=== PATIENT | male | born 1935 | race Caucasian/White ===

== ENCOUNTER 2019-09-03 06:39 | Day surgery (SDC) | payer MEDICARE ==
[~2019-09-03] VITALS: Ht 175.3 cm; Wt 102.0 kg
[~2019-09-03 06:39] MED LIST: ASPI81CH PO; CLOP75 PO; LEVOTHYROXINE PO; LEVSOD25 PO; LOVA40 PO; METF500 PO; METO25ER PO; METRIBP PO; Prinivil10 MG PO; Silvadene20 GM TOP; Vitamin B-121000 MCG PO; WARF5 PO; XARELTO15 MG PO; Zofran Odt4 MG PO
[2019-09-03] MEDS ORDERED: PLAVIX75 MG PO (10:03)
--- NOTE | 2019-09-03 11:14 | NUR ---
RIGHT GROIN SITE SOFT WITH NO HEMATOMA, NO PULSATILE BLEEDING AND INTACT DRESSING. CALL LIGHT IN REACH.
--- NOTE | 2019-09-03 11:37 | NUR ---
DISCHARGE INSTRUCTIONS REVIEWED ALL QUESTIONS ANSWERED. RIGHT GROIN SITE SOFT WITH NO HEMATOMA AND NO PULSATILE BLEEDING AND INTACT DRESSING.
== END 2019-09-03 12:15 | disposition home or self-care (01) ==
LOC: MHTC 06:39
DX: E11.51 Type 2 diabetes mellitus with diabetic peripheral angiopathy without gangrene (principal); I70.239 Atherosclerosis of native arteries of right leg with ulceration of unspecified site; I70.249 Atherosclerosis of native arteries of left leg with ulceration of unspecified site; E78.00 Pure hypercholesterolemia, unspecified; I25.10 Atherosclerotic heart disease of native coronary artery without angina pectoris; I82.409 Acute embolism and thrombosis of unspecified deep veins of unspecified lower extremity; Z88.1 Allergy status to other antibiotic agents; Z79.899 Other long term (current) drug therapy; Z79.82 Long term (current) use of aspirin; Z79.84 Long term (current) use of oral hypoglycemic drugs; Z79.01 Long term (current) use of anticoagulants
CPT/HCPCS: 82947; 85347; 99152; 99153; A9270-GY; C1725; C1760; C1769; C1887; C1894; J1644; J2250; J3010; J7030; Q9967

== ENCOUNTER → 2021-06-19 | Outpatient (CLI) | payer MEDICARE ==
[~2021-06-19] MED LIST changes: +PLAVIX75 MG PO
== END | disposition home or self-care (01) ==
LOC: LAB SHORT 07:37
DX: I87.2 Venous insufficiency (chronic) (peripheral) (principal); R23.4 Changes in skin texture
CPT/HCPCS: 88305; 88312

== ENCOUNTER 2021-07-24 09:15 | Observation (INO) | payer MEDICARE ==
[~2021-07-24] VITALS: Ht 175.3 cm; Wt 90.1 kg
[~2021-07-24 09:15] MED LIST changes: +EUTHYROX50 MCG PO; -LEVSOD25 PO
[2021-07-24 10:00] LABS: BASOPHILS ABSOLUTE AUTO 0.04 K/mm3 (0.00-0.23); BASOPHILS PERCENT AUTO 1 % (0-2); EOSINOPHILS ABSOLUTE AUTO 0.01 K/mm3 (0.00-0.68); EOSINOPHILS PERCENT AUTO 0 % (0-6); Hematocrit 40.9 % (37.0-53.0); Hemoglobin 13.9 g/dL (13.5-17.5); IMMATURE GRAN ABSOLUTE AUTO 0.03 K/mm3 (0.00-0.10); IMMATURE GRAN PERCENT AUTO 0 % (0-1); LYMPHOCYTES ABSOLUTE AUTO 0.76 K/mm3 (0.84-5.20); LYMPHOCYTES PERCENT AUTO 11 % (21-46); MONOCYTES ABSOLUTE AUTO 0.62 K/mm3 (0.16-1.47); MONOCYTES PERCENT AUTO 9 % (4-13); Mean Corpuscular HGB 33.5 pg (26.0-34.0); Mean Corpuscular Volume 99 fL (80-100); Mean Platelet Volume 9.5 fL (9.1-12.4); NEUTROPHILS ABSOLUTE AUTO 5.45 K/mm3 (1.96-9.15); NEUTROPHILS PERCENT AUTO 79 % (41-73); Platelet Count 193 K/mm3 (150-400); RDW Coefficient Variation 13.2 % (11.7-14.2); RDW Standard Deviation 47.9 fL (35.1-46.3); Red Blood Cell Count 4.15 M/mm3 (4.30-5.90); White Blood Cell Count 6.91 K/mm3 (4.00-11.30)
[2021-07-24 10:34] LABS: Alanine Aminotransfer (ALT/SGP 31 U/L (12-78); Albumin, Blood 3.7 g/dL (3.4-5.0); Albumin/Globulin Ratio 0.9 (0.8-1.8); Alk Phos 82 U/L (50-136); Anion Gap 10 mmol/L (6-16); Aspartate Aminotrans (AST/SGOT 21 U/L (12-37); Bilirubin, Total 1.1 mg/dL (0.1-1.0); Blood Urea Nitrogen 18 mg/dL (8-24); Bun/Creatinine Ratio 19.6 (12.0-20.0); CO2, Blood 22 mmol/L (21-32); Calcium, Blood 9.2 mg/dL (8.5-10.1); Chloride, Blood 107 mmol/L (98-108); Creatinine, Blood 0.92 mg/dL (0.60-1.20); Glomerular Filtration Rate >60 (60-); Glucose, Blood 217 mg/dL (70-99); Magnesium, Blood 1.5 mg/dL (1.6-2.4); Potassium, Blood 4.5 mmol/L (3.5-5.5); Sodium, Blood 139 mmol/L (136-145); Total Protein, Blood 7.7 g/dL (6.4-8.2)
[2021-07-24 10:50] LABS: Influenza A, PCR NEGATIVE (NEGATIVE); Influenza B, PCR NEGATIVE (NEGATIVE); Resp Syncytial Virus, PCR NEGATIVE (NEGATIVE); SARS-Cov-2 (COVID-19) PCR, MMC NEGATIVE (NEGATIVE)
[2021-07-24 10:56] LABS: International Normalized Ratio 1.21; Prothrombin Time Results 12.5 Sec (9.7-11.5)
--- NOTE | 2021-07-24 19:17 | NUR ---
PT ARRIVED TO THE UNIT VIA GURNEY. HIS WAS AT BEDSIDE. ORIENTED TO THE ROOM. HIS BED IS IN THE LOW POSITION AND CALL LIGHT IS WITIN REACH. PROVIDED A SNACK, PT SLEPT THE REMAINDER OF THIS SHIFT. REPORT GIVEN TO SHERLY MANUEL
--- NOTE | 2021-07-25 05:23 | NUR ---
PT IS SLEEPING THIS AM. PT IS PLEASANT AND CAN BE FORGETFUL SOMETIMES DUE TO HX OF DEMENTIA. PT FORGETS HIS LIMITATION AND STREGNTHS, PT IS VERY WEAK AND REQUIRES ASSISTANCE TO THE BEDSIDE COMMODE. PT IS ON 2L NC AND DOES C/O SOB, SATS ARE >90. OTHERWISE NO ACUTE EVENTS OVERNIGHT, PT HAS BEEN EDUCATED ON SAFETY AND CALL LIGHT USAGE. CALL LIGHT AND PERSONAL BELONGING WITHIN REACH..
[2021-07-25 05:40] LABS: BASOPHILS ABSOLUTE AUTO 0.03 K/mm3 (0.00-0.23); BASOPHILS PERCENT AUTO 0 % (0-2); EOSINOPHILS ABSOLUTE AUTO 0.03 K/mm3 (0.00-0.68); EOSINOPHILS PERCENT AUTO 0 % (0-6); Hemoglobin 11.7 g/dL (13.5-17.5); IMMATURE GRAN ABSOLUTE AUTO 0.03 K/mm3 (0.00-0.10); IMMATURE GRAN PERCENT AUTO 0 % (0-1); LYMPHOCYTES ABSOLUTE AUTO 1.38 K/mm3 (0.84-5.20); LYMPHOCYTES PERCENT AUTO 17 % (21-46); MONOCYTES ABSOLUTE AUTO 0.81 K/mm3 (0.16-1.47); MONOCYTES PERCENT AUTO 10 % (4-13); Mean Corpuscular HGB 33.7 pg (26.0-34.0); Mean Corpuscular HGB Conc 33.4 g/dL (31.5-36.5); Mean Corpuscular Volume 101 fL (80-100); Mean Platelet Volume 9.9 fL (9.1-12.4); NEUTROPHILS ABSOLUTE AUTO 5.86 K/mm3 (1.96-9.15); NEUTROPHILS PERCENT AUTO 72 % (41-73); Platelet Count 136 K/mm3 (150-400); RDW Coefficient Variation 13.3 % (11.7-14.2); RDW Standard Deviation 49.4 fL (35.1-46.3); Red Blood Cell Count 3.47 M/mm3 (4.30-5.90); White Blood Cell Count 8.14 K/mm3 (4.00-11.30)
[2021-07-25 06:10] LABS: Anion Gap 7 mmol/L (6-16); Blood Urea Nitrogen 20 mg/dL (8-24); Bun/Creatinine Ratio 20.7 (12.0-20.0); CO2, Blood 25 mmol/L (21-32); Calcium, Blood 9.2 mg/dL (8.5-10.1); Chloride, Blood 108 mmol/L (98-108); Creatinine, Blood 0.97 mg/dL (0.60-1.20); Glomerular Filtration Rate >60 (60-); Glucose, Blood 148 mg/dL (70-99); Magnesium, Blood 1.9 mg/dL (1.6-2.4); Phosphorus, Blood 3.3 mg/dL (2.5-4.9); Potassium, Blood 4.1 mmol/L (3.5-5.5); Sodium, Blood 140 mmol/L (136-145)
--- NOTE | 2021-07-25 11:51 | NUR ---
PT. COUGHED UP SMALL AMOUNT OF BLOODY MUCOUS. (AT BEDSIDE) REPORTS THAT THIS HAS HAPPENED THREE TIMES. RN NOTIFIED IMMEDIATELY.
--- NOTE | 2021-07-25 13:24 | NUR ---
CHARTING A ENGINEER STATION MAINLINE 2 STUDENT.
[2021-07-26 05:35] LABS: BASOPHILS ABSOLUTE AUTO 0.03 K/mm3 (0.00-0.23); BASOPHILS PERCENT AUTO 0 % (0-2); EOSINOPHILS ABSOLUTE AUTO 0.09 K/mm3 (0.00-0.68); EOSINOPHILS PERCENT AUTO 1 % (0-6); Hemoglobin 12.1 g/dL (13.5-17.5); IMMATURE GRAN ABSOLUTE AUTO 0.07 K/mm3 (0.00-0.10); IMMATURE GRAN PERCENT AUTO 1 % (0-1); LYMPHOCYTES ABSOLUTE AUTO 0.89 K/mm3 (0.84-5.20); LYMPHOCYTES PERCENT AUTO 11 % (21-46); MONOCYTES ABSOLUTE AUTO 0.84 K/mm3 (0.16-1.47); MONOCYTES PERCENT AUTO 11 % (4-13); Mean Corpuscular HGB 33.6 pg (26.0-34.0); Mean Corpuscular HGB Conc 33.6 g/dL (31.5-36.5); Mean Corpuscular Volume 100 fL (80-100); Mean Platelet Volume 9.8 fL (9.1-12.4); NEUTROPHILS ABSOLUTE AUTO 6.04 K/mm3 (1.96-9.15); NEUTROPHILS PERCENT AUTO 76 % (41-73); Platelet Count 148 K/mm3 (150-400); RDW Coefficient Variation 12.9 % (11.7-14.2); RDW Standard Deviation 47.9 fL (35.1-46.3); White Blood Cell Count 7.96 K/mm3 (4.00-11.30)
[2021-07-26 06:06] LABS: Anion Gap 7 mmol/L (6-16); Blood Urea Nitrogen 17 mg/dL (8-24); Bun/Creatinine Ratio 18.4 (12.0-20.0); CO2, Blood 26 mmol/L (21-32); Calcium, Blood 9.5 mg/dL (8.5-10.1); Chloride, Blood 103 mmol/L (98-108); Creatinine, Blood 0.92 mg/dL (0.60-1.20); Glomerular Filtration Rate >60 (60-); Glucose, Blood 189 mg/dL (70-99); Magnesium, Blood 1.9 mg/dL (1.6-2.4); Phosphorus, Blood 3.2 mg/dL (2.5-4.9); Potassium, Blood 4.3 mmol/L (3.5-5.5); Sodium, Blood 136 mmol/L (136-145)
--- NOTE | 2021-07-26 06:44 | NUR ---
SHIFT REPORT ALERT AND ORIENTED X'S 3. SLEPT WELL THROUGH NIGHT. RESPIRATIONS EVEN AND UNLABORED, ON RA, LUNG SOUNDS CLEAR. SAFETY MAINTAINED, CALL CEJA IN REACH
--- NOTE | 2021-07-26 08:34 | NUR ---
Patient is already a resumption for [facility] services, and will receive [facility] services. I called Summer with Sandi to request she disregard the referral from [facility]LO[facility] Marlow yesterday and confirmed with Ashley Richardson again that he will still receive services after hospital discharge - she confirmed this.
[2021-07-26] MEDS ORDERED: AZIT250 PO (10:59)
[2021-07-26] MEDS ORDERED: LEVO750 PO (10:59)
--- NOTE | 2021-07-26 11:54 | NUR ---
DISCHARGE INSTRUCTION GIVEN TO PATIENT AND PATENT'S , Patient and verbalized understanding. iv removed per PROTOCOL. PATIENT WAS ADVISED TO FOLLOW-UP WITH PCP AND COMPLETE ANTIBIOTIC ORDER. PATIENT WAITING ON TRANSPORATATION. NO ACUTE DISTRESS NOTED.
--- NOTE | 2021-07-26 13:12 | NUR ---
Per chart review with Dr. Parr, patient appropriate to discharge home with [facility] services. I called and spoke with patient's this morning to discuss discharge plan. Patient and no longer drive. Patient's arrange discharge transportation with family friend. I scheduled a hospital follow-up with patient's PCP, Dr. Mcclellan on Sunday, August 01, 2021 @ 11:40am. Patient and agreeable to discharge plan and scheduled appointment with PCP, deny barriers to discharge.
--- NOTE | 2021-07-26 13:37 | NUR ---
PATIENT WAS TRANSFER TO THE MAIN ENTRANCE FOR DISCHARGE, NO ACUTE DITRESS NOTED.
== END 2021-07-26 13:45 | disposition home health service (06) ==
LOC: ER 09:15 → MEDS 09:16 → ER 13:15 → MEDS 13:15
PROVIDERS: Student in an Organized Health Care Education/Training Program; ADMIT Family Medicine
DX: J18.9 Pneumonia, unspecified organism (principal); J96.01 Acute respiratory failure with hypoxia; I10 Essential (primary) hypertension; R35.0 Frequency of micturition; I25.10 Atherosclerotic heart disease of native coronary artery without angina pectoris; E11.9 Type 2 diabetes mellitus without complications; R91.1 Solitary pulmonary nodule; F03.90 Unspecified dementia, unspecified severity, without behavioral disturbance, psychotic disturbance, mood disturbance, and anxiety; I44.7 Left bundle-branch block, unspecified; R00.0 Tachycardia, unspecified; E83.42 Hypomagnesemia; I35.0 Nonrheumatic aortic (valve) stenosis; Z88.1 Allergy status to other antibiotic agents; Z20.822 Contact with and (suspected) exposure to COVID-19
CPT/HCPCS: 0241U; 36415; 71045; 71250; 80053; 80069; 82947; 83605; 83735; 83880; 84484; 85025; 85610; 85730; 87040; 93005; 93010; 96365; 96368; 96376; 97110; 97116; 97162; 99285-25; A9270; G0378; J0456; J0696; J3475; J7030; J7050

== ENCOUNTER 2021-09-04 09:20 | Day surgery (SDC) | payer MEDICARE ==
[~2021-09-04] VITALS: Ht 175.3 cm; Wt 92.0 kg
[~2021-09-04 09:20] MED LIST changes: +AZIT250 PO; +LEVO750 PO
--- NOTE | 2021-09-04 13:24 | NUR ---
PT UP TO BATHROOM /C SBA. TOLERATED WELL. -BLEEDING OR SWELLING R GROIN AREA.
--- NOTE | 2021-09-04 14:01 | NUR ---
PT AND VERBALIZED UNDERSTANDING OF WRITTEN AND VERBAL D/C INST. IV REMOVED. -BLEEDING OR SWELLIN R GROIN AREA.
== END 2021-09-04 14:29 | disposition home or self-care (01) ==
LOC: MHTC 09:20
DX: I35.0 Nonrheumatic aortic (valve) stenosis (principal); I25.10 Atherosclerotic heart disease of native coronary artery without angina pectoris; I10 Essential (primary) hypertension; E11.9 Type 2 diabetes mellitus without complications; G47.33 Obstructive sleep apnea (adult) (pediatric); E78.00 Pure hypercholesterolemia, unspecified; I44.7 Left bundle-branch block, unspecified; Z86.718 Personal history of other venous thrombosis and embolism; Z86.711 Personal history of pulmonary embolism; Z79.82 Long term (current) use of aspirin; Z79.84 Long term (current) use of oral hypoglycemic drugs; Z79.02 Long term (current) use of antithrombotics/antiplatelets; Z79.01 Long term (current) use of anticoagulants; Z95.5 Presence of coronary angioplasty implant and graft; Z88.0 Allergy status to penicillin; Z88.1 Allergy status to other antibiotic agents
CPT/HCPCS: 93458; 99152; 99153; C1760; C1769; C1894; J1644; J2250; J3010; J7030; J7050; Q9967

== ENCOUNTER 2021-09-11 14:55 | Emergency (ER) | payer MEDICARE ==
[~2021-09-11] VITALS: Ht 175.3 cm; Wt 91.6 kg
== END 2021-09-11 17:06 | disposition home or self-care (01) ==
LOC: ER 14:55
DX: L76.31 Postprocedural hematoma of skin and subcutaneous tissue following a dermatologic procedure (principal); I10 Essential (primary) hypertension; E78.00 Pure hypercholesterolemia, unspecified; Z79.899 Other long term (current) drug therapy
CPT/HCPCS: 93926; 99283-25

== ENCOUNTER 2021-11-18 21:11 | Observation (INO) | payer MEDICARE ==
[~2021-11-18] VITALS: Ht 175.3 cm; Wt 91.5 kg
[2021-11-18 21:54] LABS: BASOPHILS ABSOLUTE AUTO 0.03 K/mm3 (0.00-0.23); BASOPHILS PERCENT AUTO 1 % (0-2); EOSINOPHILS ABSOLUTE AUTO 0.02 K/mm3 (0.00-0.68); EOSINOPHILS PERCENT AUTO 0 % (0-6); IMMATURE GRAN ABSOLUTE AUTO 0.04 K/mm3 (0.00-0.10); IMMATURE GRAN PERCENT AUTO 1 % (0-1); LYMPHOCYTES ABSOLUTE AUTO 0.45 K/mm3 (0.84-5.20); LYMPHOCYTES PERCENT AUTO 7 % (21-46); MONOCYTES PERCENT AUTO 8 % (4-13); Mean Corpuscular HGB 33.2 pg (26.0-34.0); Mean Corpuscular HGB Conc 34.1 g/dL (31.5-36.5); Mean Corpuscular Volume 97 fL (80-100); Mean Platelet Volume 9.5 fL (9.1-12.4); NEUTROPHILS ABSOLUTE AUTO 5.61 K/mm3 (1.96-9.15); NEUTROPHILS PERCENT AUTO 84 % (41-73); Platelet Count 154 K/mm3 (150-400); RDW Standard Deviation 46.5 fL (35.1-46.3); Red Blood Cell Count 4.22 M/mm3 (4.30-5.90); White Blood Cell Count 6.65 K/mm3 (4.00-11.30)
[2021-11-18 22:15] LABS: Albumin, Blood 3.9 g/dL (3.4-5.0); Bilirubin, Total 0.8 mg/dL (0.1-1.0); Bun/Creatinine Ratio 15.5 (12.0-20.0); Calcium, Blood 9.7 mg/dL (8.5-10.1); Creatinine, Blood 1.03 mg/dL (0.60-1.20); Globulin, Blood 3.8 g/dL (2.2-4.0); Potassium, Blood 4.2 mmol/L (3.5-5.5); Total Protein, Blood 7.7 g/dL (6.4-8.2)
[2021-11-19 01:02] LABS: Source, Urine Clean Catch
[2021-11-19 01:05] LABS: Bilirubin, Urine Neg (Neg); Blood, Urine 3+ (Neg); Glucose Qualitative, Urine 3+ (Neg); Ketones, Urine Neg (Neg); Leukocyte Esterase, Urine Neg (Neg); Nitrite, Urine Neg (Neg); Protein, Urine 3+ (Neg); Specific Gravity, Urine 1.015 (1.003-1.022); Urobilinogen, Urine 2+ (Normal)
[2021-11-19] MEDS ORDERED: ATOR40TA PO (01:08)
[2021-11-19] MEDS ORDERED: ALOGLIPTIN25 M1 PO (01:10)
[2021-11-19 01:20] LABS: Appearance, Urine Clear (Clear); Color, Urine Yellow (P-Yellow)
[2021-11-19 01:21] LABS: Bacteria Not Seen /hpf; Red Blood Cells, Urine 0-2 /hpf (0-2); Squamous Epithelial Cells Rare /hpf (Few); White Blood Cells, Urine 0-2 /hpf (0-5)
[2021-11-19 05:06] LABS: Influenza A, PCR NEGATIVE (NEGATIVE); Influenza B, PCR NEGATIVE (NEGATIVE); Resp Syncytial Virus, PCR NEGATIVE (NEGATIVE)
[2021-11-19 05:51] LABS: SARS-Cov-2 (COVID-19) PCR, MMC POSITIVE (NEGATIVE)
[2021-11-19 12:08] LABS: Creatine Kinase MB 6.3 ng/mL (0.0-3.6); Creatine Kinase MB Index 0.9 (0.0-4.0)
--- NOTE | 2021-11-19 18:36 | NUR ---
SHIFT SUMMARY PATIENT ADMITTED FROM ER FOR COVID + WITH INCREASED WEAKNESS. PATIENT A&OX4, [place] BUT HAS HEARING AIDS IN. PATIENT HAS ELEVATED TROPS, ELEVATED CREATINE KINASE. PATIENT DENIES CHEST PAIN OR SOB. ON TELE SINUS TACH. REPEAT EKG DONE. PATIENT ON RA. DRY COUGH PRESENT. RECEIVING IV FLUIDS. PATIENT HAS NOT AMBULATED SINCE TRANSPORTED UP FROM ER. PATIENT REPORTS HE AMBULATES WITH WALKER AT HOME. WILL CONTINUE TO MONITOR.
[2021-11-19 20:22] LABS: Creatine Kinase MB 18.2 ng/mL (0.0-3.6); Creatine Kinase MB Index 0.7 (0.0-4.0)
[2021-11-20 05:34] LABS: BASOPHILS ABSOLUTE AUTO 0.03 K/mm3 (0.00-0.23); BASOPHILS PERCENT AUTO 1 % (0-2); EOSINOPHILS ABSOLUTE AUTO 0.25 K/mm3 (0.00-0.68); EOSINOPHILS PERCENT AUTO 4 % (0-6); Hematocrit 41.3 % (37.0-53.0); Hemoglobin 13.8 g/dL (13.5-17.5); IMMATURE GRAN ABSOLUTE AUTO 0.02 K/mm3 (0.00-0.10); IMMATURE GRAN PERCENT AUTO 0 % (0-1); LYMPHOCYTES ABSOLUTE AUTO 1.21 K/mm3 (0.84-5.20); LYMPHOCYTES PERCENT AUTO 21 % (21-46); MONOCYTES ABSOLUTE AUTO 0.67 K/mm3 (0.16-1.47); MONOCYTES PERCENT AUTO 12 % (4-13); Mean Corpuscular HGB 33.5 pg (26.0-34.0); Mean Corpuscular HGB Conc 33.4 g/dL (31.5-36.5); Mean Corpuscular Volume 100 fL (80-100); Mean Platelet Volume 9.4 fL (9.1-12.4); NEUTROPHILS ABSOLUTE AUTO 3.67 K/mm3 (1.96-9.15); NEUTROPHILS PERCENT AUTO 63 % (41-73); Platelet Count 141 K/mm3 (150-400); RDW Coefficient Variation 13.1 % (11.7-14.2); RDW Standard Deviation 48.8 fL (35.1-46.3); Red Blood Cell Count 4.12 M/mm3 (4.30-5.90); White Blood Cell Count 5.85 K/mm3 (4.00-11.30)
--- NOTE | 2021-11-20 05:37 | NUR ---
PT SLEPT ALL NIGHT, NO PRNS GIVEN. VSS, LUNG SOUNDS DIM. MD CALLED REGARDING INCREASE IN CK, FLUIDS DC PER ORDER AND .
[2021-11-20 05:53] LABS: Albumin, Blood 3.3 g/dL (3.4-5.0); Albumin/Globulin Ratio 0.9 (0.8-1.8); Bilirubin, Total 0.7 mg/dL (0.1-1.0); Bun/Creatinine Ratio 17.9 (12.0-20.0); Calcium, Blood 9.5 mg/dL (8.5-10.1); Creatinine, Blood 0.95 mg/dL (0.60-1.20); Globulin, Blood 3.6 g/dL (2.2-4.0); Potassium, Blood 4.2 mmol/L (3.5-5.5); Total Protein, Blood 6.9 g/dL (6.4-8.2)
--- NOTE | 2021-11-20 13:38 | NUR ---
Upon receiving a spiritual care referral, I visit pt. Pt is lying in bed and resting but easily awakens to the sound of his name. Pt explains about how weak and tired he is but admits to feeling a little stronger this day. Pt talks about his love for his family of , Dali and 2 sons and 1 dtr. and his love for God and the [place]. He shares about his fears centered around his health and the care of his how has had a stroke and needs care. His neighbors are keeping a watchful eye on her while he is in the hospital and stepping in where needed. I normalize his concerns and provide anxiety containment, pastoral credit counselor, recitation of scripture and prayer. Pt responds well and shows signs of being encouraged in his cammie. I I will continue to remainavailable to pt and family.
--- NOTE | 2021-11-20 15:10 | NUR ---
ECHOCARDIOGRAM COMPLETED TODAY. EF 59%. LOW TO NORMAL SYSTOLIC FUNCTION. THE ECHO SHOWS A INTRAVENTRICULAR CONDUCTION ABNORMALITY PER REPORT. PATIENT TALKED WITH GREEN BUILDING ENGINEER TODAY ABOUT PLACEMENT INTO REHAB FOR A TIME POST DISCHARGE. NO COMPLAINTS OF SOB OR PAIN.
--- NOTE | 2021-11-20 17:57 | NUR ---
PATIENT DENIES SOB, CHEST PAIN, OR OTHER COMPLAINTS BESIDES HIS COUGH. END OF SHIFT HE REQUESTED SOMETHING FOR COUGH, TESSLON ORDER APPROVED. ECHO WAS COMPLETED TODAY. RESULTS ARE IN CHART. PATIENT COMFORTABLE EATING DINNER AT THIS TIME.
--- NOTE | 2021-11-21 04:46 | NUR ---
NO ACUTE CHANGES IN THE NIGHT. VSS, PT SLEPT ALL NIGHT.
[2021-11-21 05:49] LABS: BASOPHILS ABSOLUTE AUTO 0.03 K/mm3 (0.00-0.23); BASOPHILS PERCENT AUTO 1 % (0-2); EOSINOPHILS ABSOLUTE AUTO 0.36 K/mm3 (0.00-0.68); EOSINOPHILS PERCENT AUTO 6 % (0-6); Hematocrit 40.1 % (37.0-53.0); Hemoglobin 13.5 g/dL (13.5-17.5); IMMATURE GRAN ABSOLUTE AUTO 0.01 K/mm3 (0.00-0.10); IMMATURE GRAN PERCENT AUTO 0 % (0-1); LYMPHOCYTES ABSOLUTE AUTO 1.74 K/mm3 (0.84-5.20); LYMPHOCYTES PERCENT AUTO 29 % (21-46); MONOCYTES ABSOLUTE AUTO 0.68 K/mm3 (0.16-1.47); MONOCYTES PERCENT AUTO 11 % (4-13); Mean Corpuscular HGB 33.3 pg (26.0-34.0); Mean Corpuscular HGB Conc 33.7 g/dL (31.5-36.5); Mean Corpuscular Volume 99 fL (80-100); Mean Platelet Volume 9.4 fL (9.1-12.4); NEUTROPHILS ABSOLUTE AUTO 3.13 K/mm3 (1.96-9.15); NEUTROPHILS PERCENT AUTO 53 % (41-73); Platelet Count 161 K/mm3 (150-400); RDW Coefficient Variation 12.9 % (11.7-14.2); RDW Standard Deviation 46.5 fL (35.1-46.3); Red Blood Cell Count 4.06 M/mm3 (4.30-5.90); White Blood Cell Count 5.95 K/mm3 (4.00-11.30)
[2021-11-21 06:10] LABS: Albumin/Globulin Ratio 0.8 (0.8-1.8); Bilirubin, Total 0.5 mg/dL (0.1-1.0); Bun/Creatinine Ratio 18.8 (12.0-20.0); Calcium, Blood 9.5 mg/dL (8.5-10.1); Creatinine, Blood 0.96 mg/dL (0.60-1.20); Magnesium, Blood 1.9 mg/dL (1.6-2.4); Phosphorus, Blood 4.2 mg/dL (2.5-4.9); Potassium, Blood 3.9 mmol/L (3.5-5.5)
[2021-11-21] MEDS ORDERED: ACET325 PO (13:43)
[2021-11-21] MEDS ORDERED: BENZ100A PO (13:43)
--- NOTE | 2021-11-21 14:58 | NUR ---
DISCHARGE PT PROVIDED W/ DC DIRECTION, PT VERBALIZED UNDERSTANDING. IV DC'ED. PT SPOUSE CONTACTED, SPOUSE PLANS TO CONTACT FRIEND FOR TRANSPORTATION. VSS. CALL LIGHT W/IN REACH. WAITING FOR RIDE @ THIS TIME, PLAN TO ESCORT OUT VIA WC TO [facility].
== END 2021-11-21 15:34 | disposition home health service (06) ==
LOC: ER 21:11 → ERHOLD 21:12 → MEDS 21:12 → ERHOLD 21:12 → MEDS 11-19 15:36
PROVIDERS: Hospitalist; Student in an Organized Health Care Education/Training Program; ADMIT Internal Medicine
DX: U07.1 COVID-19 (principal); I10 Essential (primary) hypertension; I25.10 Atherosclerotic heart disease of native coronary artery without angina pectoris; E78.00 Pure hypercholesterolemia, unspecified; I40.0 Infective myocarditis; E11.65 Type 2 diabetes mellitus with hyperglycemia; E87.2 Acidosis; I51.4 Myocarditis, unspecified; E11.42 Type 2 diabetes mellitus with diabetic polyneuropathy; I44.7 Left bundle-branch block, unspecified; K57.90 Diverticulosis of intestine, part unspecified, without perforation or abscess without bleeding; G47.33 Obstructive sleep apnea (adult) (pediatric); Z79.84 Long term (current) use of oral hypoglycemic drugs; Z79.82 Long term (current) use of aspirin; Z88.1 Allergy status to other antibiotic agents; Z95.5 Presence of coronary angioplasty implant and graft; Z96.651 Presence of right artificial knee joint; Z87.891 Personal history of nicotine dependence; W18.30XA Fall on same level, unspecified, initial encounter; Z79.01 Long term (current) use of anticoagulants; Z66 Do not resuscitate; Z86.718 Personal history of other venous thrombosis and embolism
CPT/HCPCS: 0241U; 36415; 71045; 80053; 81001; 82550; 82553; 82947; 83605; 83735; 83880; 84100; 84484; 85025; 93005; 93010; 93308; 96361; 96374; 97116; 97161; 97165; 97535; 99285-25; A9270; G0378; J2185; J7030

== ENCOUNTER 2022-03-08 09:10 | Day surgery (SDC) | payer OTHER ==
[~2022-03-08] VITALS: Ht 175.3 cm; Wt 88.7 kg
[~2022-03-08 09:10] MED LIST changes: +ACET325 PO; +ALOGLIPTIN25 M1 PO; +ASPIR 8181 M1 PO; +ATOR40TA PO; +BENZ100A PO
[2022-03-08] MEDS ORDERED: FOLI1 PO (09:44)
--- NOTE | 2022-03-08 09:52 | NUR ---
03/08/22 0952 Ela Reardon AT 0945 PLEKAMARET AT 0924
== END 2022-03-08 11:35 | disposition home or self-care (01) ==
LOC: ORSCSDS 09:10
PROVIDERS: Ophthalmology
PROC: 08RK3JZ Replacement of Left Lens with Synthetic Substitute, Percutaneous Approach (ICD-10-PCS; principal; 2022-03-08 10:30)
DX: H25.12 Age-related nuclear cataract, left eye (principal); H52.202 Unspecified astigmatism, left eye; I10 Essential (primary) hypertension; I48.91 Unspecified atrial fibrillation; Z79.01 Long term (current) use of anticoagulants; E11.9 Type 2 diabetes mellitus without complications; E03.9 Hypothyroidism, unspecified; E78.00 Pure hypercholesterolemia, unspecified; F03.90 Unspecified dementia, unspecified severity, without behavioral disturbance, psychotic disturbance, mood disturbance, and anxiety; Z79.84 Long term (current) use of oral hypoglycemic drugs; Z79.899 Other long term (current) drug therapy
CPT/HCPCS: 82947; J2001; J2250; J3010; J3301; J7040; V2632

== ENCOUNTER → 2023-01-15 | Outpatient (CLI) | payer MEDICARE ==
[~2023-01-15] MED LIST changes: +FOLI1 PO
== END ==
LOC: LAB 11:28 → LAB SHORT 11:28
DX: L08.9 Local infection of the skin and subcutaneous tissue, unspecified (principal)
CPT/HCPCS: 87070; 87077; 87147; 87186; 87205

== ENCOUNTER 2023-01-28 17:49 | Emergency (ER) | payer OTHER ==
[~2023-01-28] VITALS: Ht 175.3 cm; Wt 90.7 kg
[2023-01-28 18:26] VITALS: BP 140/72
[2023-01-28 18:35] LABS: Source, Urine Clean Catch
[2023-01-28 18:48] LABS: Appearance, Urine Bloody (Clear); Bilirubin, Urine Neg (Neg); Blood, Urine 5+ (Neg); Color, Urine Red (P-Yellow); Glucose Qualitative, Urine 4+ (Neg); Ketones, Urine Neg (Neg); Leukocyte Esterase, Urine Neg (Neg); Nitrite, Urine Neg (Neg); Protein, Urine 4+ (Neg); Specific Gravity, Urine 1.015 (1.003-1.022); Urobilinogen, Urine NORM (Normal)
[2023-01-28 19:07] LABS: Red Blood Cells, Urine TNTC /hpf (0-2)
[2023-01-28 19:08] LABS: Bacteria Many /hpf; Squamous Epithelial Cells Rare /hpf (Few)
[2023-01-28] MEDS ORDERED: CEFP200 PO (21:52)
== END 2023-01-28 22:11 | disposition home or self-care (01) ==
LOC: ER 17:49
PROVIDERS: Physician Assistant
DX: R31.9 Hematuria, unspecified (principal); Z88.8 Allergy status to other drugs, medicaments and biological substances; Z88.1 Allergy status to other antibiotic agents; Z88.0 Allergy status to penicillin; Z79.899 Other long term (current) drug therapy; Z79.84 Long term (current) use of oral hypoglycemic drugs; I10 Essential (primary) hypertension; E11.9 Type 2 diabetes mellitus without complications; E78.00 Pure hypercholesterolemia, unspecified; Z87.891 Personal history of nicotine dependence
CPT/HCPCS: 81001; 87077; 87086; 87186; 99283; A9270

== ENCOUNTER 2024-04-02 20:34 | Inpatient (IN) | payer MEDICARE ==
[~2024-04-02] VITALS: Ht 177.8 cm; Wt 90.7 kg
[~2024-04-02 20:34] MED LIST changes: +CEFP200 PO
[2024-04-02 21:27] LABS: Source, Urine Clean Catch
[2024-04-02 21:29] LABS: Appearance, Urine Clear (Clear); Bilirubin, Urine Neg (Neg); Blood, Urine 3+ (Neg); Color, Urine Yellow (P-Yellow); Glucose Qualitative, Urine 4+ (Neg); Ketones, Urine Neg (Neg); Leukocyte Esterase, Urine Neg (Neg); Nitrite, Urine Neg (Neg); Protein, Urine 2+ (Neg); Urobilinogen, Urine 2+ (Normal); pH, Urine 6.5 (5.0-8.0)
[2024-04-02 21:49] LABS: Bacteria Few /hpf; Red Blood Cells, Urine 0-2 /hpf (0-2); Squamous Epithelial Cells Few /hpf (Few)
[2024-04-02 21:49] LABS: BASOPHILS ABSOLUTE AUTO 0.04 K/mm3 (0.00-0.23); BASOPHILS PERCENT AUTO 1 % (0-2); EOSINOPHILS ABSOLUTE AUTO 0.03 K/mm3 (0.00-0.68); EOSINOPHILS PERCENT AUTO 0 % (0-6); Hematocrit 38.3 % (37.0-53.0); Hemoglobin 13.2 g/dL (13.5-17.5); IMMATURE GRAN ABSOLUTE AUTO 0.03 K/mm3 (0.00-0.10); IMMATURE GRAN PERCENT AUTO 0 % (0-1); LYMPHOCYTES ABSOLUTE AUTO 0.43 K/mm3 (0.84-5.20); LYMPHOCYTES PERCENT AUTO 6 % (21-46); MONOCYTES ABSOLUTE AUTO 0.57 K/mm3 (0.16-1.47); MONOCYTES PERCENT AUTO 7 % (4-13); Mean Corpuscular HGB 33.2 pg (26.0-34.0); Mean Corpuscular HGB Conc 34.5 g/dL (31.5-36.5); Mean Corpuscular Volume 96 fL (80-100); Mean Platelet Volume 9.6 fL (9.1-12.4); NEUTROPHILS ABSOLUTE AUTO 6.76 K/mm3 (1.96-9.15); NEUTROPHILS PERCENT AUTO 86 % (41-73); Platelet Count 147 K/mm3 (150-400); RDW Coefficient Variation 12.7 % (11.7-14.2); RDW Standard Deviation 44.7 fL (35.1-46.3); Red Blood Cell Count 3.98 M/mm3 (4.30-5.90); White Blood Cell Count 7.86 K/mm3 (4.00-11.30)
[2024-04-02 22:05] LABS: Albumin, Blood 3.7 g/dL (3.4-5.0); Bilirubin, Total 1.1 mg/dL (0.1-1.0); Bun/Creatinine Ratio 13.2 (12.0-20.0); Calcium, Blood 9.3 mg/dL (8.5-10.1); Creatinine, Blood 1.06 mg/dL (0.60-1.20); Globulin, Blood 3.8 g/dL (2.2-4.0); Potassium, Blood 4.4 mmol/L (3.5-5.5); Total Protein, Blood 7.5 g/dL (6.4-8.2)
[2024-04-02 23:25] LABS: Influenza A, PCR NEGATIVE (NEGATIVE); Influenza B, PCR NEGATIVE (NEGATIVE); Resp Syncytial Virus, PCR NEGATIVE (NEGATIVE)
[2024-04-02] MEDS ORDERED: CefTRIAXone Sodium 1,000 MG in NS 100 ML IV ONE (23:25)
[2024-04-02 23:41] LABS: SARS-Cov-2 (COVID-19) PCR, MMC POSITIVE (NEGATIVE)
[2024-04-03] MEDS ORDERED: Ondansetron HCl 2 MG / ML 2ML Vial IV PRN (02:00)
[2024-04-03] MEDS ORDERED: FLU VACC TS2024-25(6MOS UP)/PF 45 MCG/0.5 ML SYRINGE IM ONE ×2 (02:05→23:00)
[2024-04-03] MEDS ORDERED: Acetaminophen 325 MG TABLET PO PRN (02:05)
[2024-04-03] MEDS ORDERED: Levothyroxine Sodium 0.05 MG Tab PO SCH (06:00)
[2024-04-03 06:04] LABS: BASOPHILS ABSOLUTE AUTO 0.03 K/mm3 (0.00-0.23); BASOPHILS PERCENT AUTO 1 % (0-2); EOSINOPHILS PERCENT AUTO 0 % (0-6); Hematocrit 37.5 % (37.0-53.0); IMMATURE GRAN ABSOLUTE AUTO 0.03 K/mm3 (0.00-0.10); IMMATURE GRAN PERCENT AUTO 1 % (0-1); LYMPHOCYTES PERCENT AUTO 14 % (21-46); MONOCYTES ABSOLUTE AUTO 0.62 K/mm3 (0.16-1.47); MONOCYTES PERCENT AUTO 10 % (4-13); Mean Corpuscular HGB 33.3 pg (26.0-34.0); Mean Corpuscular HGB Conc 34.7 g/dL (31.5-36.5); Mean Corpuscular Volume 96 fL (80-100); Mean Platelet Volume 9.6 fL (9.1-12.4); NEUTROPHILS ABSOLUTE AUTO 4.71 K/mm3 (1.96-9.15); NEUTROPHILS PERCENT AUTO 75 % (41-73); Platelet Count 143 K/mm3 (150-400); RDW Coefficient Variation 12.9 % (11.7-14.2); White Blood Cell Count 6.29 K/mm3 (4.00-11.30)
[2024-04-03 06:51] LABS: Albumin, Blood 3.4 g/dL (3.4-5.0); Albumin/Globulin Ratio 0.9 (0.8-1.8); Calcium, Blood 9.1 mg/dL (8.5-10.1); Globulin, Blood 3.9 g/dL (2.2-4.0); Total Protein, Blood 7.3 g/dL (6.4-8.2)
[2024-04-03] MEDS ORDERED: Insulin Human Lispro 100 Units/ML 3ML Syringe SC SCH ×2 (08:30→12:50)
[2024-04-03] MEDS ORDERED: Enoxaparin 40 MG/0.4 ML SYR SC SCH (09:00)
[2024-04-03] MEDS ORDERED: NIRMATRELVIR PO SCH (09:00)
[2024-04-03] MEDS ORDERED: RITONAVIR PO SCH (09:00)
[2024-04-03] MEDS ORDERED: Lactobacil 2-S.Thermo-Bifido 1 1 Cap PO SCH (09:00)
[2024-04-03] MEDS ORDERED: NIRMATRELVIR/RITONAVIR 3 TAB BLISTER CARD PO SCH ×2 (09:00→09:07)
[2024-04-03 09:37] VITALS: BP 165/71
[2024-04-03] MEDS ORDERED: ATOR40TA PO (10:29)
[2024-04-03] MEDS ORDERED: Prinivil10 MG PO (10:29)
[2024-04-03] MEDS ORDERED: METO25ER PO (10:30)
[2024-04-03] MEDS ORDERED: NS 1,000 ML IV SCH (11:30)
[2024-04-03 15:34] VITALS: BP 153/82
--- NOTE | 2024-04-03 19:18 | NUR ---
SHIFT SUMMARY PATIENT ALERT BUT CONFUSED. NEEDING CUEING AND COACHING WHEN AMBULATING WITH WALKER. PATIENT HIGH FALL RISK AND DECONDITIONED. PRESENT AT BEDSIDE AND STATES THAT THEY BOTH HAVE DEMENTIA. SON IN AND OUT. PATIENT HAS REDNESS ON COCCYX. MEPILEX DRESSING PLACED. PATIENT PROGRESSIVELY WEAKER AND MORE CONFUSED AT THE END OF SHIFT. PATIENT WALKING WITH POOR POSTURE INCREASING FALL RISK.
[2024-04-03 19:25] VITALS: BP 162/79
[2024-04-03] MEDS ORDERED: CefTRIAXone Sodium 1,000 MG in NS 100 ML IV SCH (21:00)
[2024-04-03] MEDS ORDERED: Metoprolol Succinate 25 MG TABCR PO SCH (22:00)
[2024-04-03] MEDS ORDERED: Lisinopril 10 MG Tab PO SCH (22:00)
[2024-04-04 04:49] VITALS: BP 130/76
--- NOTE | 2024-04-04 06:31 | NUR ---
Shift Summary No acute changes. Pt is Covid+, on room air SPO2>92%. He is 1-2 assist to the BR w/ FWW and GB. His ambulation is very weak and unsteady, he has a difficult time initially standing up and must shuffle slowly and carefully to his destination. His is in the room with him and spent the night. Rcving NS @ 50 and Paxlovid. Blood glucose was elevated last night at 227, no coverage per low sliding scale. Pt attempted to have a BM 3 times and was unsuccseful, he was given a 'brown cow' to aid his BM around 0600. Pt states no BM for 3 days.
--- NOTE | 2024-04-04 07:40 | NUR ---
PATIENT TRYING TO HAVE BM, AT BEDSIDE PLEASANT, CALL LIGHT WITH IN PATIENTS REACH
[2024-04-04 07:50] VITALS: BP 132/67
[2024-04-04 07:54] LABS: BASOPHILS ABSOLUTE AUTO 0.03 K/mm3 (0.00-0.23); BASOPHILS PERCENT AUTO 1 % (0-2); EOSINOPHILS ABSOLUTE AUTO 0.02 K/mm3 (0.00-0.68); EOSINOPHILS PERCENT AUTO 0 % (0-6); Hematocrit 37.3 % (37.0-53.0); Hemoglobin 12.8 g/dL (13.5-17.5); IMMATURE GRAN ABSOLUTE AUTO 0.03 K/mm3 (0.00-0.10); IMMATURE GRAN PERCENT AUTO 1 % (0-1); LYMPHOCYTES ABSOLUTE AUTO 0.88 K/mm3 (0.84-5.20); LYMPHOCYTES PERCENT AUTO 16 % (21-46); MONOCYTES ABSOLUTE AUTO 0.68 K/mm3 (0.16-1.47); MONOCYTES PERCENT AUTO 13 % (4-13); Mean Corpuscular HGB 33.1 pg (26.0-34.0); Mean Corpuscular HGB Conc 34.3 g/dL (31.5-36.5); Mean Corpuscular Volume 96 fL (80-100); NEUTROPHILS ABSOLUTE AUTO 3.77 K/mm3 (1.96-9.15); NEUTROPHILS PERCENT AUTO 70 % (41-73); RDW Coefficient Variation 13.1 % (11.7-14.2); RDW Standard Deviation 46.5 fL (35.1-46.3); Red Blood Cell Count 3.87 M/mm3 (4.30-5.90); White Blood Cell Count 5.41 K/mm3 (4.00-11.30)
[2024-04-04 08:00] LABS: Albumin, Blood 3.4 g/dL (3.4-5.0); Albumin/Globulin Ratio 0.9 (0.8-1.8); Bilirubin, Total 1.7 mg/dL (0.1-1.0); Bun/Creatinine Ratio 20.6 (12.0-20.0); Creatinine, Blood 0.97 mg/dL (0.60-1.20); Globulin, Blood 3.9 g/dL (2.2-4.0); Magnesium, Blood 1.7 mg/dL (1.6-2.4); Phosphorus, Blood 3.2 mg/dL (2.5-4.9); Potassium, Blood 4.2 mmol/L (3.5-5.5); Total Protein, Blood 7.3 g/dL (6.4-8.2)
[2024-04-04 09:46] LABS: Platelet Count 117 K/mm3 (150-400)
[2024-04-04 16:07] VITALS: BP 115/63
--- NOTE | 2024-04-04 18:08 | NUR ---
NO ACUTE CHANGES, PLEASANT TO CARE, ALERT AND ORIENTED X3, AND SON VISITED THROUGH OUT THE DAY, DENIED NAUSEA, MEDICATED WITH TYLENOL IN AM, PATIENT WORKED WITH PT, WEAKNESS LESSENING FOR PATIENT, CALL LIGHT WITH IN REACH, WILL RELAY TO PM RN
[2024-04-04 21:02] VITALS: BP 150/72
[2024-04-05 04:13] VITALS: BP 130/63
--- NOTE | 2024-04-05 04:34 | NUR ---
SHIFT SUMMARY PATIENT NOT COUGHING MUCH. DOES NEED HELP STANDING AND CLEANING SELF DID NOT REQUIRE PRN MEDS TONIGHT. STAYING IN ROOM, HAS BEEN EMPTYING HIS URINAL, REMINED HER NOT TO.
[2024-04-05 07:21] LABS: Albumin, Blood 3.2 g/dL (3.4-5.0); Albumin/Globulin Ratio 0.8 (0.8-1.8); Bilirubin, Total 0.6 mg/dL (0.1-1.0); Bun/Creatinine Ratio 23.7 (12.0-20.0); Calcium, Blood 9.4 mg/dL (8.5-10.1); Creatinine, Blood 0.97 mg/dL (0.60-1.20); Potassium, Blood 4.6 mmol/L (3.5-5.5); Total Protein, Blood 7.2 g/dL (6.4-8.2)
[2024-04-05 07:25] VITALS: BP 186/84
[2024-04-05] MEDS ORDERED: Magnesium Oxide 400 MG Tab PO SCH (09:00)
[2024-04-05 16:22] VITALS: BP 142/73
[2024-04-06 03:16] VITALS: BP 155/74
--- NOTE | 2024-04-06 03:50 | NUR ---
ADMITTED 04/04/24 WITH GENERALIZED WEAKNESS AND A FALL @ GROUND LEVEL. COVID +. AAO X 3 WITH INTERMITENT CONFUSSION. HX OF DEMENTIA. USES URINAL AT BEDSIDE DURING NIGHT. IV LAC, NS @ 50ML/HR AND ROCEPHIN. SON, LES IS HOPING TO DO REHAV @ PR. ACHS BLOOD GLUCOSE CHECKS.
[2024-04-06 07:27] VITALS: BP 155/77
[2024-04-06] MEDS ORDERED: CefTRIAXone Sodium 1,000 MG in NS 100 ML IV ONE (09:40)
[2024-04-06 16:18] VITALS: BP 144/73
--- NOTE | 2024-04-06 18:22 | NUR ---
SHIFT SUMMARY PT IS A/OX3-4, CONFUSION AND FORGETFUL AT TIMES. NO ACUTE EVENTS THROUGHOUT SHIFT. PT UP IN THE CHAIR FOR MUCH OF THE DAY. WORKED WITH PT/OT THIS SHIFT, PT IS A 1 PERSON SBA WITH FWW TO THE BATHROOM. PT IS CONTINENT AND CALLS APPROPRIATELY USING THE CALL LIGHT. FAMILY PRESENT FOR MUCH OF THE DAY. PT VISITED BY SOMEONE FROM [facility] THIS AFTERNOON.
[2024-04-06 19:20] VITALS: BP 156/79
[2024-04-06] MEDS ORDERED: Cephalexin Monohydrate 500 MG Cap PO SCH (21:00)
[2024-04-07 02:49] VITALS: BP 159/70
--- NOTE | 2024-04-07 04:50 | NUR ---
SHIFT SUMMARY 88 YR M ADMITTED ON 04/04/24. DNR. NO ACUTE CHANGES THIS SHIFT. NO C/O PAIN OR DISCOMFORT THIS SHIFT. PT UP IN CHAIR FOR FIRST PART OF SHIFT THEN GOT IN BED AND FELL ASLEEP FOR MOST OF THE REST OF THE SHIFT. HE IS CONTINENT AND USES A URINAL INDEPENDANTLY. HE CALLS APPROPRIATELY FOR ASSISTANCE. HE IS VERY PLEASANT AND COOPERATIVE WITH CARE. BED IN LOW POSITION AND CALL LIGHT IN REACH.
[2024-04-07 07:30] VITALS: BP 176/80
[2024-04-07 07:51] LABS: BASOPHILS ABSOLUTE AUTO 0.04 K/mm3 (0.00-0.23); BASOPHILS PERCENT AUTO 1 % (0-2); EOSINOPHILS ABSOLUTE AUTO 0.13 K/mm3 (0.00-0.68); EOSINOPHILS PERCENT AUTO 3 % (0-6); IMMATURE GRAN ABSOLUTE AUTO 0.01 K/mm3 (0.00-0.10); IMMATURE GRAN PERCENT AUTO 0 % (0-1); LYMPHOCYTES ABSOLUTE AUTO 1.65 K/mm3 (0.84-5.20); LYMPHOCYTES PERCENT AUTO 36 % (21-46); MONOCYTES ABSOLUTE AUTO 0.42 K/mm3 (0.16-1.47); MONOCYTES PERCENT AUTO 9 % (4-13); Mean Corpuscular HGB 33.2 pg (26.0-34.0); Mean Corpuscular HGB Conc 34.2 g/dL (31.5-36.5); Mean Corpuscular Volume 97 fL (80-100); Mean Platelet Volume 9.5 fL (9.1-12.4); NEUTROPHILS ABSOLUTE AUTO 2.37 K/mm3 (1.96-9.15); NEUTROPHILS PERCENT AUTO 51 % (41-73); Platelet Count 146 K/mm3 (150-400); RDW Coefficient Variation 13.1 % (11.7-14.2); RDW Standard Deviation 46.5 fL (35.1-46.3); Red Blood Cell Count 3.92 M/mm3 (4.30-5.90); White Blood Cell Count 4.62 K/mm3 (4.00-11.30)
[2024-04-07 08:04] LABS: Albumin, Blood 3.3 g/dL (3.4-5.0); Albumin/Globulin Ratio 0.9 (0.8-1.8); Bilirubin, Total 0.6 mg/dL (0.1-1.0); Bun/Creatinine Ratio 18.7 (12.0-20.0); Calcium, Blood 9.4 mg/dL (8.5-10.1); Creatinine, Blood 0.91 mg/dL (0.60-1.20); Globulin, Blood 3.8 g/dL (2.2-4.0); Potassium, Blood 4.2 mmol/L (3.5-5.5); Total Protein, Blood 7.1 g/dL (6.4-8.2)
--- NOTE | 2024-04-07 09:54 | NUR ---
transfer of care this rn assumed care at 0700. blood pressure hypertensive, and medicated per emar. this rn gave report to laurie kimball who is assuming care
[2024-04-07] MEDS ORDERED: Lisinopril 10 MG Tab PO SCH (14:00)
--- NOTE | 2024-04-07 18:42 | NUR ---
PATIENT DISCHARGE: PATIENT DISCHARGED/ XFR TO HOME HEALTH THIS SHIFT. MEDICATION RECONCILIATION COMPLETED; NO NEW MEDS TO REPORT. DISCHARGEEDUCATION COMPLETED WITH PATIENT AND FAMILY. PATIENT TRANSPORTEDTO EXIT BY [facility] STAFF WITH WHEELCHAIR AT 1730. PATIENT DEPARTED [facility] VIA PRIVATE AUTO.
[2024-04-08] MEDS ORDERED: Lisinopril 20 MG Tab PO SCH (09:00)
== END 2024-04-07 17:29 | disposition home health service (06) | DRG 689 ==
LOC: ER 20:34 → ERHOLD 20:35 → MEDS 04-03 09:35 → ENPENDDIS 04-07 16:07 → MEDS 04-07 17:29
PROVIDERS: Family Medicine; Hospitalist; Student in an Organized Health Care Education/Training Program; ADMIT Student in an Organized Health Care Education/Training Program
PROC: 3E02340 Introduction of Influenza Vaccine into Muscle, Percutaneous Approach (ICD-10-PCS; principal; 2024-04-03)
PROC: XW0DXF5 Introduction of Other New Technology Therapeutic Substance into Mouth and Pharynx, External Approach, New Technology Group 5 (ICD-10-PCS; 2024-04-03)
DX: N39.0 Urinary tract infection, site not specified (principal); U07.1 COVID-19; Z23 Encounter for immunization; Z66 Do not resuscitate; I10 Essential (primary) hypertension; I25.10 Atherosclerotic heart disease of native coronary artery without angina pectoris; E11.9 Type 2 diabetes mellitus without complications; E78.5 Hyperlipidemia, unspecified; F03.90 Unspecified dementia, unspecified severity, without behavioral disturbance, psychotic disturbance, mood disturbance, and anxiety; E03.9 Hypothyroidism, unspecified; Z86.718 Personal history of other venous thrombosis and embolism; Z79.01 Long term (current) use of anticoagulants; E78.00 Pure hypercholesterolemia, unspecified; Z95.5 Presence of coronary angioplasty implant and graft; Z96.651 Presence of right artificial knee joint; Z87.891 Personal history of nicotine dependence; Z88.1 Allergy status to other antibiotic agents; Z88.0 Allergy status to penicillin; Z79.84 Long term (current) use of oral hypoglycemic drugs; Z79.890 Hormone replacement therapy; Z79.899 Other long term (current) drug therapy
CPT/HCPCS: 0241U; 36415; 70450; 72125; 80053; 81001; 82947; 83735; 84100; 85025; 87086; 90656; 96365; 96372; 96376; 97110; 97110-CQ; 97116; 97116-CQ; 97162; 97165; 97530; 97535; 99285-25; A9270; G0378; J0696; J1650; J1815; J7030

== ENCOUNTER 2025-04-01 06:48 | Day surgery (SDC) | payer OTHER ==
[2025-04-01] VITALS (11 sets, daily range): BP systolic 124–164; BP diastolic 61–85
[~2025-04-01] VITALS: Ht 175.3 cm; Wt 89.8 kg
[~2025-04-01 06:48] MED LIST changes: +THERA-D2000 UNIT PO; +Triamcinolone A15 G4 TOP
[2025-04-01] MEDS ORDERED: NS 500 ML IV ONE (07:34)
[2025-04-01] MEDS ORDERED: Heparin Sodium 1000 Units/ML 10ML MDV ONE ×2 (07:35→10:49)
[2025-04-01] MEDS ORDERED: NS 1,000 ML IV ONE ×2 (07:35→08:51)
[2025-04-01] MEDS ORDERED: Nitroglycerin 2 MG/20 ML BTL ONE (07:36)
[2025-04-01] MEDS ORDERED: FentaNYL Citrate 50 MCG/ML 2 ML Injection ONE ×2 (08:50→09:55)
[2025-04-01] MEDS ORDERED: Midazolam HCl 1MG / ML 2ML Vial ONE ×2 (08:50→09:39)
--- NOTE | 2025-04-01 12:00 | NUR ---
PT BACK TO RECOVERY ROOM. PT DROWSY, BUT FOLLOWING INSTRUCTIONS WELL. LAYING FLAT AND KEEPING HEAD AND LEGS DOWN. PT HAS R AND L GROIN SITES, BOTH SOFT, NON TENDER, DRESSINGS CLEAN/DRY/INTACT. DAUGHTER AT BEDSIDE. R PULSES FOUND WITH DOPPLER.
--- NOTE | 2025-04-01 13:20 | NUR ---
CARE OF PATIENT ASSUMED AT 1250. RIGHT AND LEFT GROIN SITE REVIEWED WITH PREVIOUS RN, NO CHANGES NOTED. BOTH RIGHT AND LEFT GROIN SITES STABLE, W/O HEMATOMA/SWELLING, OR BLEEDING. RIGHT SITE TENDER TO TOUCH, LEFT NON-TENDER. DOPPLER PRESENT TO BILAT DP/PT. PATIENT BRADYCARDIC WITH RATE 40'S TO 60, PT ASYMPTOMATIC. BP/SPO2 STABLE. PATIENT SLEEPING SOUNDLY, AWAKENS TO LIGHT VOICE AND ANSWERS QUESTIONS APPROPRIATELY. HEART RATE UP TO 70 WHEN AWAKE. PATIENT FLAT/SUPINE IN SLIGHT REVERSE TREND. POSITION.
--- NOTE | 2025-04-01 14:28 | NUR ---
RIGHT AND LEFT GROIN SITES REMAIN STABLE W/PO CHANGE. PATIENT RESTING COMFORTABLY W/O COMPLAINTS. PATIENT REMAINS FLAT/SUPINE IN REVERSE TREND. DAUGHTER AT BEDSIDE. NO CHANGE TO BILAT PULSES/STABLE.
--- NOTE | 2025-04-01 14:49 | NUR ---
BOTH GROIN SITES REMAIN STABLE W/O CHANGE. HOB PLACED AT 15 DEGREE'S, SITE REMAIN UNCHAGED AFTER REPOSTION.
--- NOTE | 2025-04-01 15:31 | NUR ---
hob to 30 degrees, then 45 degreee's to eat. both groin sites remain stble w/o change. patient denies comnplaints. patient tolerating meal.
--- NOTE | 2025-04-01 17:19 | NUR ---
PATIENT OOB TO BATHROOM THEN TO CHAIR, MARCELLO WELL. PATIENT SBA WITH WALKER. BILAT GROIN CHECK STABLE W/O CHANGE. VERBAL AND WRITTEN DISCHARGE INSTRUCTIONS GIVEN TO PATIENT AND PT'S DAUGHTER WITH CLEAR UNDERSTANDING. PATIENT DC'D HOME IN STABLE CONDITION AT 1620. GROINS CHECK/PULSES CHECK PRIOR TO DISCHARGE; BOTH STABLE W/O CHANGE. PATIENT ESC[facility]ED TO [facility].
== END 2025-04-01 23:00 | disposition home or self-care (01) ==
LOC: MHTC 06:48
DX: E11.51 Type 2 diabetes mellitus with diabetic peripheral angiopathy without gangrene (principal); I70.235 Atherosclerosis of native arteries of right leg with ulceration of other part of foot; E11.621 Type 2 diabetes mellitus with foot ulcer; L97.519 Non-pressure chronic ulcer of other part of right foot with unspecified severity; I25.10 Atherosclerotic heart disease of native coronary artery without angina pectoris; I10 Essential (primary) hypertension; E78.00 Pure hypercholesterolemia, unspecified; Z88.1 Allergy status to other antibiotic agents; Z88.8 Allergy status to other drugs, medicaments and biological substances; Z91.048 Other nonmedicinal substance allergy status; Z79.84 Long term (current) use of oral hypoglycemic drugs; Z79.899 Other long term (current) drug therapy
CPT/HCPCS: 36140; 75625; 75716; 76937; 99152; 99153; C1725; C1760; C1769; C1887; C1894; C9772; J1644; J2250; J3010; J7030; J7050; Q9967